=== PATIENT | female | born 1970 | race Caucasian/White ===

== ENCOUNTER 2021-06-18 17:13 | Emergency (ER) | payer BC ==
[2021-06-18 18:43] LABS: HEMOGLOBIN 13.8 gm/dl (12.3-15.3); RED BLOOD COUNT 4.41 M/UL (4.00-5.10); WHITE BLOOD COUNT 5.8 K/UL (4.5-11.0)
[2021-06-18 19:06] LABS: BUN/CREATININE RATIO 16 (0-10)
[2021-06-18] MEDS ORDERED: NORFLEX 100 MG100 MG PO (22:22)
== END 2021-06-18 23:10 | disposition home or self-care (01) ==
LOC: ER1 17:13
PROVIDERS: Nurse Practitioner
DX: M54.9 Dorsalgia, unspecified (principal); R07.9 Chest pain, unspecified; Z91.040 Latex allergy status
CPT/HCPCS: 71045; 80053; 80076; 81001; 82150; 82550; 82553; 83690; 84484; 85025; 85379; 93005; 96374; 99285; J1885; Q9967